=== PATIENT | female | born 1950 | race Caucasian/White ===

== ENCOUNTER 2019-02-28 05:41 | Outpatient (CLI) | payer MEDICARE ==
[~2019-02-28] VITALS: Ht 160 cm; Wt 66.2 kg
[2019-02-28] MEDS ORDERED: CALC-867 PO (09:16)
== END 2019-02-28 11:03 ==
LOC: PREOP 05:41 → EDUNIT# 11:00 → PREOP 11:03
PROVIDERS: ATTEND Podiatrist Foot & Ankle Surgery
DX: Z01.818 Encounter for other preprocedural examination (principal)

== ENCOUNTER 2019-03-07 08:32 | Day surgery (SDC) | payer MEDICARE, OTHER ==
[2019-03-07] VITALS (10 sets, daily range): BP systolic 97–128; BP diastolic 57–73
[~2019-03-07 08:32] MED LIST: CALC-867 PO
[2019-03-07] MEDS ORDERED: DEXAMETHASONE 10 MG/ML (DECADRON) 1 ML VIAL ONE ×2 (09:09→09:12)
[2019-03-07] MEDS ORDERED: BUPIVACAINE 0.5% 30 ML (SENSORCAINE) VIAL ONE (09:09)
[2019-03-07] MEDS ORDERED: LIDOCAINE 1% INJ 20 ML 20 ML VIAL ONE (09:09)
[2019-03-07] MEDS ORDERED: MUPIROCIN 2% OINT 22 GM (BACTROBAN) TUBE ONE (09:10)
[2019-03-07] MEDS ORDERED: MIDAZOLAM 2 MG/2 ML (VERSED) VIAL ONE (09:12)
[2019-03-07] MEDS ORDERED: ONDANSETRON 4 MG/2 ML (SDV) Z0FRAN ONE (09:12)
[2019-03-07] MEDS ORDERED: fentaNYL INJECTION 100 MCG/2 ML AMP ONE (09:12)
[2019-03-07] MEDS ORDERED: WATER (STERILE) FOR INJECTION 10 ML ONE (09:17)
[2019-03-07] MEDS ORDERED: ceFAZolin INJECTION 1,000 MG ONE (09:17)
[2019-03-07] MEDS ORDERED: proPOfol 200 MG/20 ML (DIPRIVAN) VIAL IV ONE (09:18)
[2019-03-07] MEDS ORDERED: LIDOCAINE PF 2% 5 ML (XYLOCAINE) VIAL ONE (09:18)
--- NOTE | 2019-03-07 09:18 | Progress Note-Pre Operative ---
Pre-Operative Progress Note H&P Reviewed The H&P was reviewed, patient examined and no changes noted. Date Seen by Provider: Mar 07, 2019 Time Seen by Provider: 09:18 Date H&P Reviewed: Mar 07, 2019 Time H&P Reviewed: 09:18 Pre-Operative Diagnosis: Plantar Fasciitis left RORO ZACARIAS DPM Mar 07, 2019 09:18
[2019-03-07] MEDS ORDERED: SEVOFLURANE (ULTANE) 15 ML INHAL SOLN ONE (10:02)
[2019-03-07] MEDS ORDERED: LACTATED RINGERS 1,000 ML IV SCH (10:02)
--- NOTE | 2019-03-07 10:02 | Progress Note-Post Operative ---
Post-Operative Progess Note Surgeon (s)/Coke Inspector (s) Surgeon RORO ZACARIAS DPM Coke Inspector: none Pre-Operative Diagnosis Plantar Fasciitis left Post-Operative Diagnosis same Procedure & Operative Findings Date of Procedure 03/07/19 Procedure Performed/Findings Endoscopic Plantar Fascial Release, left Anesthesia Type General Estimated Blood Loss Estimated blood loss (mL): Minimal Specimens/Packing Specimens Removed None RORO ZACARIAS DPM Mar 07, 2019 10:02
[2019-03-07] MEDS ORDERED: ACHD5005 PO (10:05)
--- NOTE | 2019-03-07 10:10 | Anesthesia-General Post-Op ---
General Patient Condition Mental Status/LOC: Same as Preop Cardiovascular: Satisfactory Nausea/Vomiting: Absent Respiratory: Satisfactory Pain: Controlled Complications: Absent Post Op Complications Complications None Follow Up Care/Instructions Patient Instructions None needed. Anesthesia/Patient Condition Patient Condition Patient is doing well, no complaints, stable vital signs, no apparent adverse anesthesia problems. No complications reported per nursing. VU CRAIG CRNA Mar 07, 2019 10:10
[2019-03-07] MEDS ORDERED: HYDROcodone/APAP 5 MG/325 MG (LORTAB) TAB PO PRN (10:15)
[2019-03-07] MEDS ORDERED: MEPERIDINE (DEMEROL) INJ 50 MG/ML IVP ONE (10:15)
[2019-03-07] MEDS ORDERED: ONDANSETRON 4 MG/2 ML (SDV) Z0FRAN IVP PRN (10:15)
[2019-03-07] MEDS ORDERED: morphine INJ 10 MG/ML 1ML (SYR OR VIAL) IVP ONE (10:15)
[2019-03-07] MEDS ORDERED: ceFAZolin INJECTION 1,000 MG in WATER (STERILE) FOR INJECTION 10 ML IV ONE (10:45)
--- NOTE | 2019-03-07 11:30 | NUR ---
PHYSICAL THERAPY DEPT IS HERE WORKING WITH PT WALKING WITH WALKER AND HARD SHOE, NO WEIGHT BEARING LEFT FOR 24 HOURS, THEN PARTIAL TOLERATED.
--- NOTE | 2019-03-07 12:06 | NUR ---
CALLING DEANN'S OFFICE TO GET A SCRIPT FOR A FRONT WHEELED WALKER. HAD TO LEAVE A MESSAGE. AWAITING A CALL BACK
--- NOTE | 2019-03-07 12:40 | NUR ---
DISCHARGE INSTRUCTIONS GIVEN, VERBALLY ET PRINTED, SCRIPT FOR LORTAB, AND SCRIPT FOR FRONT WHEEL WALKER GIVEN, FOLLOW UP APPOINTMENT GIVEN. PT VERBALIZES UNDERSTANDING. IV DC'D WITH NO DIFFICULTY, ET PT IS DRESSING IN HER STREET CLOTHES NOW.
--- NOTE | 2019-03-07 12:42 | Physical Therapy Ortho Eval ---
PT Orthopedic Evaluation Type of Surgery Prior Level of Function Current Living Status: Spouse Locomotion (Upon Admit): Independent Established Durable Medical Eq: Front Wheeled Walker Subjective Subjective Agrees to PT. Will have family present for a few days to help out. Entry Into Home: Stairs Without Railing (2 curb style steps) Motor Control Motor Control: Motor Control WNL ROM ROM: WFL Strength Strength: WFL Transfer Transfers (B, C, W/C) (FIM): 5 (6 post evaluation) Gait Gait Assistive Device: FWW Right Lower Extremity: Right Weight Bearing Status RLE: Full Weight Bearing Left Lower Extremity: Left Weight Bearing Status LLE: Non Weight Bearing NWB for first 24 hours then PWB. Instructed in in both. Gait (FIM): 4 (6 post evaluation) Distance (FIM): 3=372-89 ft Summary/Comments Curb style step training with FWW; instruction in NWB and PWB; pt demonstrted NWB safely on step. Family present and verbalize understanding of sequencing and safety. Treatment Rendered Treatment: Gait Train, Step Train Assessment/Goals Goal Time Frame: 1 Visit Safe Ambulation: Yes Pt demonstrated safe gait NWB on level and up/down curb step; family present and noted understanding as well. Pt training to use a FWW; also has a 4WW for use later if necessary. Plan Treatment Plan: Discharge PT/Family Agrees to Plan: Yes Time Time In: 1133 Time Out: 1200 Total Billed Treatment Time: 27 Billed Treatment Time visit EVL 27 KARIN FRANCISCO PT Mar 07, 2019 12:42
--- NOTE | 2019-03-07 16:37 | OPERATIVE REPORT ---
DATE OF SERVICE: 03/07/2019 SURGEON: Teresa Lee DPM PREOPERATIVE DIAGNOSIS: Plantar fasciitis, left. POSTOPERATIVE DIAGNOSIS: Plantar fasciitis, left. PROCEDURE: Endoscopic plantar fascial release, left. WOUND CLASS: Clean. ANESTHESIA: General. HEMOSTASIS: Pneumatic thigh tourniquet at 250 mmHg. INDICATIONS: This is a 68-year-old female presents complaining of chronic pain to her left heel. Conservative therapy has met with unsatisfactory results and the patient is agreeable to surgical intervention after risks and complications were discussed at length. No guarantees were extended to the patient and she is willing to proceed. DESCRIPTION OF PROCEDURE: The patient was brought back to the operating table, placed in secure supine position. A general anesthetic was then induced. A pneumatic thigh tourniquet was placed on left lower extremity over several layers of padding. Appropriate timeout was performed. The left foot was then prepped and draped in normal sterile manner. Attention was then directed to the medial aspect of the left heel where a 0.5 cm vertical incision was created just anterior to the calcaneal tuberosity area. This area was marked preoperatively on x-ray is to be 4.7 cm from the posterior aspect of the calcaneus and a 1.8 cm from the plantar surface. This incision was deepened in the same plane with blunt dissection, after which a probe was applied to the inferior aspect of the plantar fascia tenting the lateral skin of the left calcaneus area. Next, an obturator and cannula were introduced into the medial incision, then along the inferior aspect of the plantar fascia tenting the lateral skin, where a second vertical incision of 0.5 cm was created allowing the obturator and cannula to penetrate this lateral skin. With the cannula in place, the obturator was withdrawn from the foot. A 3.0 camera was introduced into the lateral portal visualizing the inferior aspect of the plantar fascia. Next, a hook blade was introduced into the medial portal releasing the medial third of the plantar fascia visualized directly. A good release of the plantar fascia was palpated to the medial arch; however, a triangular blade was also used to release any additional fibers to the medial third of the plantar fascia under direct visualization. The wound was flushed with copious amounts of normal saline after the instrumentation was withdrawn. The cannula was withdrawn from the foot. The wound was flushed medial aspect once again. Closure was then performed with 4-0 Prolene in a simple interrupted type stitch in medial and lateral skin incisions to the left heel. Postoperative injection consisted of 12 mL of 0.5% Marcaine injected in local infusion to the surgical site followed by 10 mg dexamethasone to the surgical site. Postoperative dressing consisted of Betadine soaked Adaptic, sterile 4 x 4, sterile Kerlix all secured with Coban wrap. The patient tolerated the anesthesia and procedure well, was transported from the operating room to the recovery area with vital signs stable and vascular status intact to all digits of the left foot. She is instructed to be nonweightbearing for the next 24 hours, then partial weightbearing to tolerance with crutches or walker progressing to full weightbearing in her surgical splint shoe. We will see the patient back in the office in 10 days' period of time or sooner if necessary. Job ID: [id number] DocumentID: [id number] Dictated Date: 03/07/2019 10:10:27 Training Technician Date: 03/07/2019 16:36:35 Dictated By: ANABELLE ERVIN
== END 2019-03-07 12:54 | disposition home or self-care (01) ==
LOC: SDC 08:32
PROVIDERS: ATTEND Podiatrist Foot & Ankle Surgery
DX: M72.2 Plantar fascial fibromatosis (principal); K21.9 Gastro-esophageal reflux disease without esophagitis
CPT/HCPCS: 87081

== ENCOUNTER 2021-02-25 18:02 | Emergency (ER) | payer MEDICARE, OTHER ==
[~2021-02-25] VITALS: Ht 157 cm; Wt 67.0 kg
[~2021-02-25 18:02] MED LIST changes: +ACHD5005 PO
[2021-02-25 18:10] VITALS: BP 146/69
[2021-02-25 18:25] LABS: HEMATOCRIT 47 % (35-52); HEMOGLOBIN 15.1 g/dL (11.5-16.0); MEAN CORPUSCULAR HEMOGLOBIN 29 pg (25-34); MEAN CORPUSCULAR HGB CONC 33 g/dL (32-36); MEAN CORPUSCULAR VOLUME 90 fL (80-99); PLATELET COUNT 536 10^3/uL (130-400); WHITE BLOOD COUNT 8.5 10^3/uL (4.3-11.0)
[2021-02-25 18:26] LABS: BASOPHILS # (AUTO) 0.1 10^3/uL (0.0-0.1); BASOPHILS % (AUTO) 1 % (0-10); EOSINOPHILS # (AUTO) 0.2 10^3/uL (0.0-0.3); EOSINOPHILS % (AUTO) 2 % (0-10); LYMPHOCYTES # (AUTO) 2.9 X 10^3 (1.0-4.0); LYMPHOCYTES % (AUTO) 34 % (12-44); MEAN PLATELET VOLUME 9.4 fL (9.0-12.2); MONOCYTES # (AUTO) 0.6 X 10^3 (0.0-1.0); MONOCYTES % (AUTO) 7 % (0-12); NEUTROPHILS # (AUTO) 4.8 X 10^3 (1.8-7.8); NEUTROPHILS % (AUTO) 57 % (42-75)
--- NOTE | 2021-02-25 18:39 | ED Chest Pain ---
General Chief Complaint: Chest Pain Stated Complaint: CP Nursing Triage Note: STERNAL CHEST PAIN OFF AND ON X 1 HOUR TODAY. DENIES CHEST PAIN NOW. REPORTS SHE HAS CAREGIVER STRESS. Source: patient History of Present Illness Date Seen by Provider: Feb 25, 2021 Time Seen by Provider: 18:04 Initial Comments 70 yo female presenting with pain that comes in waves across her chest. This has been going on for the last hour. The pain comes and goes. It is more of an ache when it comes on. She currently is not having any pain or discomfort on arrival to the ED. she did think that it might be indigestion and did take a couple of Tums about 30 minutes prior to arrival. She denies any nausea, vomiting, shortness of breath, cough, headache, abdominal pain, dizziness. She reports walking on the treadmill for several miles at an high intensity earlier today. She states that she does this every day. She did not have any pain while using the treadmill. She has been under extra stress recently with her having fallen head trying to recover from a humerus and cervical spine fracture Timing/Duration: 1 hour Severity/Quality: mild, aching Location: other (Across her upper chest anteriorly) Radiation: no radiation Activities at Onset: none Prior CP/Workup: no prior chest pain, no prior cardiac workup Modifying Factors: improves with antacids ASA po FORENSICS ANALYST: No NTG SL FORENSICS ANALYST: No Associated Symptoms: No abdominal pain, No back pain, No diaphoresis, No dizziness, No edema, No fatigue, No fever/chills, No headache; heartburn; No nausea/vomiting, No rash, No shortness of breath, No swelling/lump in chest, No syncope, No weakness Allergies and Home Medications Allergies Coded Allergies: No Known Drug Allergies (Unverified , 02/28/19) Patient Home Medication List Home Medication List Reviewed: Yes Calcium Phosphate Trib/Vit D3 (Calcium + Vitamin D3 Gummies) 1 Each Tab.chew, 1 EACH PO DAILY, (Reported) Entered as Reported by: SARAY KELLEY on 02/28/19 0916 Hydrocodone Bit/Acetaminophen (Lortab 5 Mg Tablet) 1 Tab Tab, 1-2 TAB PO Q6H PRN for PAIN-MODERATE Prescribed by: RORO ZACARIAS on 03/07/19 1005 Pantoprazole Sodium (Pantoprazole Sodium) 40 Mg Tablet.dr, 40 MG PO DAILY Prescribed by: MEME HAQUE on 02/25/212143 Review of Systems Review of Systems Constitutional: No chills, No fever EENTM: No Symptoms Reported Respiratory: No Symptoms Reported Cardiovascular: See HPI Gastrointestinal: See HPI Genitourinary: No Symptoms Reported Musculoskeletal: no symptoms reported Skin: No rash Psychiatric/Neurological: Other (Stress due to illness with her ) Hematologic/Lymphatic: Denies Blood Clots Past Ohzfgxt-Ofcagk-Ibjppz Hx Patient Social History Tobacco Use?: No Use of E-Cig and/or Vaping dev: No Substance use?: No Alcohol Use?: No Pt feels they are or have been: No Immunizations Up To Date Influenza Vaccine Up-to-Date: Yes; Up-to-Date First/Initial COVID19 Vaccinat: JUNE 03 Second COVID19 Vaccination Jose Eduardo: JULY 04 COVID19 Vaccine Cardiopulmonary Specialist: [employer] Seasonal Allergies Seasonal Allergies: No Past Medical History Surgeries: Yes Breast Respiratory: No Cardiac: No Neurological: No Genitourinary: No Gastrointestinal: Yes Gastroesophageal Reflux, Hiatal Hernia Musculoskeletal: Yes (HAS PLANTAR FASCIITIS) Endocrine: No HEENT: No Cancer: No Psychosocial: No Integumentary: No Blood Disorders: No Physical Exam Vital Signs Vital Signs - First Documented 02/25/21 18:10 Temp 36.5 Pulse 78 Resp 19 B/P (MAP) 146/69 (94) Pulse Ox 97 O2 Delivery Room Air Capillary Refill : Less Than 3 Seconds Height, Weight, BMI Height: '" Weight: lbs. oz. kg; 27.00 BMI Method: General Appearance: No Apparent Distress, WD/WN HEENT: PERRL/EOMI, Pharynx Normal Neck: Full Range of Motion, Normal Inspection, Non Tender, Supple Respiratory: Chest Non Tender, Lungs Clear, Normal Breath Sounds, No Accessory Muscle Use, No Respiratory Distress Cardiovascular: Regular Rate, Rhythm, No Murmur, Normal Peripheral Pulses Gastrointestinal: Normal Bowel Sounds, No Pulsatile Mass, Non Tender, Soft Rectal: Deferred Extremity: Normal Capillary Refill, Normal Inspection, No Calf Tenderness, No Pedal Edema Neurologic/Psychiatric: Alert, Oriented x3, partition assembler II-XII Norm as Tested Skin: Normal Color, Warm/Dry Progress/Results/Core Measures Results/Orders Lab Results Laboratory Tests Test 02/25/21 18:00 Range/Units White Blood Count 8.5 4.3-11.0 10^3/uL Red Blood Count 5.15 H 3.80-5.11 10^6/uL Hemoglobin 15.1 11.5-16.0 g/dL Hematocrit 47 35-52 % Mean Corpuscular Volume 90 80-99 fL Mean Corpuscular Hemoglobin 29 25-34 pg Mean Corpuscular Hemoglobin Concent 33 32-36 g/dL Red Cell Distribution Width 13.2 10.0-14.5 % Platelet Count 536 H 130-400 10^3/uL Mean Platelet Volume 9.4 9.0-12.2 fL Immature Granulocyte % (Auto) 0 % Neutrophils (%) (Auto) 57 42-75 % Lymphocytes (%) (Auto) 34 12-44 % Monocytes (%) (Auto) 7 0-12 % Eosinophils (%) (Auto) 2 0-10 % Basophils (%) (Auto) 1 0-10 % Neutrophils # (Auto) 4.8 1.8-7.8 X 10^3 Lymphocytes # (Auto) 2.9 1.0-4.0 X 10^3 Monocytes # (Auto) 0.6 0.0-1.0 X 10^3 Eosinophils # (Auto) 0.2 0.0-0.3 10^3/uL Basophils # (Auto) 0.1 0.0-0.1 10^3/uL Immature Granulocyte # (Auto) 0.0 0.0-0.1 10^3/uL Prothrombin Time 12.3 12.2-14.7 SEC INR Comment 0.9 0.8-1.4 Activated Partial Thromboplast Time 27 24-35 SEC D-Dimer < 0.28 0.00-0.49 UG/ML Sodium Level 143 135-145 MMOL/L Potassium Level 3.9 3.6-5.0 MMOL/L Chloride Level 106 98-107 MMOL/L Carbon Dioxide Level 27 21-32 MMOL/L Anion Gap 10 5-14 MMOL/L Blood Urea Nitrogen 12 7-18 MG/DL Creatinine 1.00 0.60-1.30 MG/DL Estimat Glomerular Filtration Rate 55 BUN/Creatinine Ratio 12 Glucose Level 108 H 70-105 MG/DL Calcium Level 9.6 8.5-10.1 MG/DL Corrected Calcium 9.3 8.5-10.1 MG/DL Magnesium Level 2.2 1.6-2.4 MG/DL Total Bilirubin 0.3 0.1-1.0 MG/DL Aspartate Amino Transf (AST/SGOT) 18 5-34 U/L Alanine Aminotransferase (ALT/SGPT) 12 0-55 U/L Alkaline Phosphatase 71 40-136 U/L Troponin I < 0.30 <0.30 NG/ML Pro-B-Type Natriuretic Peptide 183.4 H <75.0 PG/ML Total Protein 7.1 6.4-8.2 GM/DL Albumin 4.4 3.2-4.5 GM/DL Lipase 61 8-78 U/L My Orders Orders - MEME HAQUE MD Cbc With Automated Diff (02/25/21 18:04) Magnesium (02/25/21 18:04) Chest 1 View Ap/Pa Only (02/25/21 18:04) Ekg Tracing (02/25/21 18:04) Comprehensive Metabolic Panel (02/25/21 18:04) Protime With Inr (02/25/21 18:04) Partial Thromboplastin Time (02/25/21 18:04) O2 (02/25/21 18:04) Monitor-Rhythm Ecg Trace Only (02/25/21 18:04) Ed Iv/Invasive Line Start (02/25/21 18:04) Lipase (02/25/21 18:04) Troponin I Fs (02/25/21 18:04) Probnp Fs (02/25/21 18:04) Fibrin Degradation Products (02/25/21 18:04) Ct Chest W (02/25/21 20:23) Iohexol Injection (Omnipaque 350 Mg/Ml 1 (02/25/21 20:45) Received Contrast (Hold Metformin- Contr (02/25/21 20:45) Sodium Chloride Flush (Catheter Flush Sy (02/25/21 20:45) Ns (Ivpb) (Sodium Chloride 0.9% Ivpb Bag (02/25/21 20:45) Medications Given in ED Current Medications Medications Dose Ordered Sig/Bridgette Route Start Time Stop Time Status Last Admin Dose Admin Iohexol 100 ml ONCE ONCE IV 02/25/21 20:45 02/25/21 21:15 DC 02/25/21 21:03 75 ML Sodium Chloride 10 ml NEEDED PRN IV 02/25/21 20:45 02/25/21 22:05 DC 02/25/21 21:03 10 ML Sodium Chloride 100 ml ONCE ONCE IV 02/25/21 20:45 02/25/21 21:15 DC 02/25/21 21:02 80 ML Vital Signs/I&O 02/25/21 02/25/21 02/25/21 02/25/21 18:10 19:30 20:30 21:45 Temp 36.5 Pulse 78 75 73 70 Resp 19 17 17 18 B/P (MAP) 146/69 (94) 132/60 131/74 123/74 Pulse Ox 97 99 98 99 O2 Delivery Room Air Room Air Room Air Room Air Blood Pressure Mean: 94 Progress Progress Note #1: Progress Note With complaint of chest pain will obtain electrocardiogram, chest x-ray, blood work including cardiac enzymes. The electrocardiogram did not demonstrate any acute ischemic changes or ST elevation. Patient reports having no chest pain on arrival to the ED. Progress Note #2: Progress Note Labs are all stable without acute significant normality. Her chest x-ray is clear without signs of infection but she did have a 6 mm nodule in the right upper lobe. With no previous chest x-ray to compare to was unclear if this was chronic or not. Recommendation for a nonemergent CT scan. Patient could not remember having a chest x-ray anytime recently or been told that she had a nodule in her lung. She became anxious and concerned that the nodule was cancer or something that might be causing her symptoms. She stated that she asked the well to help take care of her and cannot be sick. Will obtain a CT scan to evaluate the nodule as well as further evaluate her chest pain. Progress Note #3: Progress Note CT scan was negative for any signs of mass or cancer. The nodule seen on chest x-ray is showing to be a calcified granuloma which would be benign. She had no evidence of pulmonary embolism or infiltrate. Reassured patient and advised that with her symptoms improved after taking the Tums at home and that she has a hiatal hernia on the CT scan this certainly could be GI related. Stress would play a role with this as well. Prescribed Protonix and encouraged to follow-up through the clinic for continued concerns. Return if worsening symptoms Initial ECG Impression Date: Feb 25, 2021 Initial ECG Impression Time: 18:04 Initial ECG Rate: 74 Initial ECG Rhythm: Normal Sinus Initial ECG Comparisson: No Previous ECG Available Comment Normal sinus rhythm with a heart rate of 74 bpm. VT interval [address] elevation. QT interval 391 ms with a QTc interval 434 ms. There is no prior tracing available for comparison. Diagnostic Imaging Diagonstic Imaging: Xray Plain Films/CT/US/NM/MRI: chest Comments [facility] [facility]. [place], [place] NAME: NABIL HAYS [facility] REC#: [id number] PT STATUS: REG ER : 1950 PHYSICIAN: MEME HAQUE MD ADMIT DATE: 02/25/21/ER FS Draft Date of Exam:02/25/21 CHEST 1 VIEW AP/PA ONLY INDICATION: Chest pain COMPARISON: None available TECHNIQUE: Single frontal radiograph of the chest dated 02/25/2021 FINDINGS: The cardiac silhouette is within normal limits in size. No significant pulmonary vascular congestion. Tortuosity of the descending thoracic aorta. The left lung is clear. 6 mm hyperdensity seen overlying the right upper lung/anterior right 1st rib. The right lung is otherwise clear. No significant pleural effusion. No pneumothorax. No acute osseous abnormality. IMPRESSION: 6 mm hyperdensity overlying the right upper lung. This is favored to relate to a calcified granuloma, though this could also relate to a 1st rib lesion. True pulmonary nodule is not completely excluded. Comparison to prior imaging is recommended. If no prior imaging is available, then a nonemergent CT of the chest would be recommended. Dictated on workstation # [id number] Dict: 02/25/21 1820 Trans: 02/25/21 1835 [facility] [id number] Interpreted by: KAILYN DAVIS MD Electronically signed by: Reviewed: Reviewed by Me Departure Impression Primary Impression: Hiatal hernia Additional Impressions: Calcified granuloma of lung Atypical chest pain Disposition: 01 HOME, SELF-CARE Condition: Stable Departure-Patient Inst. Decision time for Depature: 21:42 Referrals: ERIKA MCCORMCAK MD (PCP/Family) Primary Care Physician Patient Instructions: Chest Pain, Adult ED, Pulmonary Nodule, Hiatal Hernia (DC) Add. Discharge Instructions: The pain tonight may be from hiatal hernia and stress. No evidence of heart attack, blood clot in lungs, pneumonia. The nodule seen in right upper lung was found to be a calcified granuloma, which is a benign finding. Take medicine for reflux/gastritis. Follow up with clinic for continued concerns All discharge instructions reviewed with patient and/or family. Voiced understanding. Scripts Pantoprazole Sodium (Pantoprazole Sodium) 40 Mg Tablet.dr 40 MG PO DAILY for hiatal hernia for 30 Days, #30 TAB 0 Refills Prov: MEME HAQUE MD 02/25/21 MEME HAQUE MD Feb 25, 2021 18:39
[2021-02-25 18:54] LABS: BILIRUBIN,TOTAL 0.3 MG/DL (0.1-1.0); CALCIUM 9.6 MG/DL (8.5-10.1); MAGNESIUM 2.2 MG/DL (1.6-2.4); POTASSIUM 3.9 MMOL/L (3.6-5.0)
[2021-02-25 18:55] LABS: ALBUMIN 4.4 GM/DL (3.2-4.5); TOTAL PROTEIN 7.1 GM/DL (6.4-8.2)
[2021-02-25] MEDS ORDERED: HOLD METFORMIN - RECEIVED CONTRAST 20 ML VIAL IV SCH (20:45)
[2021-02-25] MEDS ORDERED: CATHETER FLUSH 10 ML SYR IV PRN (20:45)
[2021-02-25] MEDS ORDERED: NS 100 ML (IVPB) BAG IV ONE (20:45)
[2021-02-25] MEDS ORDERED: IOHEXOL 350 MG/ML 100 ML (OMNIPAQUE 350) VIAL IV ONE (20:45)
[2021-02-25 20:49] LABS: FIBRIN DEGRADATION PRODUCTS < 0.28 UG/ML (0.00-0.49); INR 0.9 (0.8-1.4); PARTIAL THROMBOPLASTIN TIME 27 SEC (24-35); PROTHROMBIN TIME PATIENT 12.3 SEC (12.2-14.7)
--- NOTE | 2021-02-25 21:18 | Diagnostic Imaging Report ---
INDICATION: Abnormal chest x-ray, pulmonary nodule. TECHNIQUE: Multiple contiguous axial images were obtained through the chest after administration of intravenous contrast. Auto Exposure Controls were utilized during the CT exam to meet ALARA standards for radiation dose reduction. COMPARISON: There is no prior chest CT for comparison. Comparison made to chest x-ray of 6:16 PM same day. There are no enlarged mediastinal or hilar nodes. There are no enlarged axillary nodes or chest wall lesions. There is no pleural or pericardial fluid. Visualized portions of the upper abdomen show no acute finding. There are calcified granulomata in the spleen. There is a moderate-sized hiatal hernia. There are diffuse degenerative findings in the thoracic spine. Lung parenchymal windows demonstrate a calcified granuloma in the right upper lobe. There are calcified nodes in the right suprahilar region compatible with old granulomatous disease. There is no consolidation or suspicious pulmonary nodule. IMPRESSION: The nodular density seen on chest x-ray was shown to be a densely calcified granuloma in the right upper lobe, therefore a benign finding. There are some calcified right suprahilar nodes as well compatible with old granulomatous change. There is no suspicious nodule or infiltrate or pleural fluid. There is a moderate-sized hiatal hernia. There are calcific granulomata in the spleen. Dictated by: Dictated on workstation # [id number]
[2021-02-25] MEDS ORDERED: PANT40TA52 PO (21:44)
== END 2021-02-25 21:55 | disposition home or self-care (01) ==
LOC: EDUNIT# 18:02 → ER FS 18:03
DX: K44.9 Diaphragmatic hernia without obstruction or gangrene (principal); J84.10 Pulmonary fibrosis, unspecified; R07.89 Other chest pain; K21.9 Gastro-esophageal reflux disease without esophagitis
CPT/HCPCS: 36415; 71045; 71260; 80053; 83690; 83735; 83880; 84484; 85025; 85379; 85610; 85730; 93005; 93041